=== PATIENT | female | born 1965 | race Caucasian/White ===

== ENCOUNTER 2018-03-30 21:57 | Emergency (ER) | payer SELFPAY | END 2018-03-30 23:09 | disposition home or self-care (01) | LOC: ER 21:57 | DX: R05 Cough (principal); R06.02 Shortness of breath; R50.9 Fever, unspecified; R06.2 Wheezing; I10 Essential (primary) hypertension; Z87.891 Personal history of nicotine dependence | CPT/HCPCS: 99283 ==